=== PATIENT | female | born 1990 | race Caucasian/White ===

== ENCOUNTER → 2016-02-29 | Outpatient (REF) | payer OTHER ==
[~2016-02-29] MED LIST: /MESA40TAB PO; ACET50TA PO; ACIDCAP PO; CALCCHW PO; CELE20TA OR; DOCU10ELUD PO; DRIS50002 PO; IBUP600T26 PO; INFL10VL IV; LIAL1.2T PO; MAG-TAB2 PO; MOM30SS; ORTHTAB5 PO; OYST500T OR; PRE-TAB3 PO; VITA200015 PO; VITA200016 PO; acidophilus PO; asacol PO; remicade IV
== END ==
LOC: M SFHCLERA 10:36
PROVIDERS: ATTEND Nurse Practitioner Family
DX: J02.9 Acute pharyngitis, unspecified (principal)

== ENCOUNTER 2016-03-17 14:06 | Outpatient (CLI) | payer MEDICAID, OTHER ==
[~2016-03-17] VITALS: Ht 162.6 cm; Wt 105.0 kg
[2016-03-17] MEDS ORDERED: OMEP40CA2 PO (14:34)
[2016-03-17] MEDS ORDERED: ACIDWAF PO (14:34)
[2016-03-17] MEDS ORDERED: CHEW500C2 PO (14:34)
[2016-03-17] MEDS ORDERED: [UNRECOGNIZED DRUG - CODE] SC (14:34)
[2016-03-17] MEDS ORDERED: MAGN500T5 PO (14:34)
[2016-03-17] MEDS ORDERED: URSO300C3 PO (14:39)
== END 2016-03-17 17:33 | disposition home or self-care (01) ==
LOC: M LDO 14:06
PROVIDERS: ATTEND Obstetrics & Gynecology
DX: O36.8130 Decreased fetal movements, third trimester, not applicable or unspecified (principal); Z3A.36 36 weeks gestation of pregnancy

== ENCOUNTER → 2016-10-25 | Outpatient (CLI) | payer OTHER ==
[~2016-10-25] MED LIST changes: +ACIDWAF PO; +CHEW500C2 PO; +MAGN500T5 PO; +OMEP40CA2 PO; +ORTHTAB14 PO; -ORTHTAB5 PO; +URSO300C3 PO; +[UNRECOGNIZED DRUG - CODE] SC
[2016-10-25 14:43] LABS: BASO % 0.3 % (0.0-1.0); EOS % 0.1 % (0.0-3.0); LARGE UNSTAINED CELL # 0.1 K/mm3 (0.0-0.4); LARGE UNSTAINED CELL % 0.6 % (0.0-4.0); LYMPH # 0.9 K/mm3 (1.5-6.5); LYMPH % 7.8 % (24.0-44.0); MEAN CORPUSCULAR HEMOGLOBIN 23.6 pg (27.0-33.0); MEAN CORPUSCULAR HGB CONC 30.6 g/dl (32.0-36.5); MEAN CORPUSCULAR VOLUME 77.2 fl (80.0-96.0); MONO # 0.2 K/mm3 (0.0-0.8); MONO % 1.6 % (0.0-5.0); NEUTROPHILS # 10.7 K/mm3 (1.8-7.7); NEUTROPHILS % 89.6 % (36.0-66.0); PLATELET COUNT, AUTOMATED 424 k/mm3 (150-450); RED CELL DISTRIBUTION WIDTH 16.1 % (11.5-14.5)
[2016-10-25 15:25] LABS: ALBUMIN 3.6 GM/DL (3.2-5.2); ALBUMIN/GLOBULIN RATIO 0.95 (1.00-1.93); ALKALINE PHOSPHATASE 71 U/L (45-117); ALT/SGPT 24 U/L (12-78); ANION GAP 10 MEQ/L (8-16); AST/SGOT 7 U/L (15-37); BILIRUBIN,TOTAL 0.3 MG/DL (0.2-1.0); BLOOD UREA NITROGEN 11 MG/DL (7-18); CARBON DIOXIDE LEVEL 26 MEQ/L (21-32); CHLORIDE LEVEL 105 MEQ/L (98-107); CREATININE FOR GFR 0.86 MG/DL (0.55-1.02); GLOMERULAR FILTRATION RATE > 60.0 (>60); GLUCOSE, FASTING 98 MG/DL (70-105); POTASSIUM SERUM 3.9 MEQ/L (3.5-5.1); SODIUM LEVEL 141 MEQ/L (136-145); TOTAL PROTEIN 7.4 GM/DL (6.4-8.2)
== END ==
LOC: M LAB 13:38
PROVIDERS: ATTEND Internal Medicine Gastroenterology
DX: K51.90 Ulcerative colitis, unspecified, without complications (principal)

== ENCOUNTER → 2016-11-20 | Outpatient (CLI) | payer OTHER ==
[2016-11-20 10:43] LABS: MEAN CORPUSCULAR HEMOGLOBIN 23.3 pg (27.0-33.0); MEAN CORPUSCULAR HGB CONC 29.7 g/dl (32.0-36.5); MEAN CORPUSCULAR VOLUME 78.5 fl (80.0-96.0); RED CELL DISTRIBUTION WIDTH 17.1 % (11.5-14.5); WHITE BLOOD COUNT 11.3 10^3/uL (4.0-10.0)
[2016-11-20 11:17] LABS: ALBUMIN 3.7 GM/DL (3.2-5.2); ANION GAP 8 MEQ/L (8-16); BLOOD UREA NITROGEN 10 MG/DL (7-18); CALCIUM LEVEL 8.2 MG/DL (8.5-10.1); CARBON DIOXIDE LEVEL 30 MEQ/L (21-32); CHLORIDE LEVEL 104 MEQ/L (98-107); CHOLESTEROL LEVEL 173 MG/DL (<200); CREATININE FOR GFR 0.77 MG/DL (0.55-1.02); FERRITIN 9 NG/ML (8-252); GLOMERULAR FILTRATION RATE > 60.0 (>60); GLUCOSE, FASTING 76 MG/DL (70-105); PHOSPHORUS LEVEL 3.6 MG/DL (2.5-4.9); POTASSIUM SERUM 3.6 MEQ/L (3.5-5.1); SODIUM LEVEL 142 MEQ/L (136-145); TOTAL IRON BINDING CAPACITY 329 UG/DL (250-450); TRIGLYCERIDES LEVEL 103 MG/DL (<150)
--- NOTE | 2016-11-20 11:18 | REP ---
REASON: Back pain times 5 years. COMPARISON: None. FINDINGS: Five views of the lumbosacral spine show no acute fracture, dislocation or subluxation. The intervertebral disc spaces are symmetric and well maintained. There is no spondylolisthesis. The pedicles are intact bilaterally and there is no destructive osseous lesions. IMPRESSION: Unremarkable lumbosacral spine series. Signed by Yung Rausch DO 11/20/2016 02:59 P
[2016-11-22 10:16] LABS: FOLATE 13.2 NG/ML; VITAMIN B12 LEVEL 402 PG/ML
== END ==
LOC: M LAB 09:57
PROVIDERS: ATTEND Student in an Organized Health Care Education/Training Program
DX: G89.29 Other chronic pain (principal)

== ENCOUNTER → 2016-12-27 | Outpatient (REF) | payer OTHER ==
[2016-12-27 19:30] LABS: CONTROL LINE HCG INT CTR LINE PRESENT
[2016-12-27 19:56] LABS: FERRITIN 9 NG/ML (8-252); PERCENT SATURATION 8.3 % (13.2-45.0); TOTAL IRON BINDING CAPACITY 301 UG/DL (250-450)
== END ==
LOC: M LAB REF 17:23
PROVIDERS: ATTEND Internal Medicine Medical Oncology
DX: D50.9 Iron deficiency anemia, unspecified (principal)

== ENCOUNTER → 2017-01-03 | Outpatient (REF) | payer OTHER ==
[2017-01-04 08:02] LABS: CONTROL LINE HCG INT CTR LINE PRESENT
== END ==
LOC: M LAB REF 17:36
PROVIDERS: ATTEND Internal Medicine Medical Oncology
DX: D50.9 Iron deficiency anemia, unspecified (principal)

== ENCOUNTER 2017-01-17 21:31 | Inpatient (IN) | payer OTHER ==
[~2017-01-17] VITALS: Ht 162.6 cm; Wt 112.9 kg
[~2017-01-17 21:31] MED LIST changes: -AZAT50TA2 PO; -GABA-282 PO; -TOPA50TA8 PO
[2017-01-17] MEDS ORDERED: AZAT50TA2 PO (22:02)
[2017-01-17] MEDS ORDERED: GABA-282 PO (22:04)
[2017-01-17] MEDS ORDERED: TOPA50TA8 PO (22:04)
[2017-01-18 00:47] LABS: BASO % 0.4 % (0.0-1.0); EOS # 0.1 10^3/uL (0.0-0.50); EOS % 0.6 % (0.0-3.0); IMMATURE GRANULOCYTE % 0.2 % (0-0); LYMPH # 2.1 10^3/uL (1.5-6.5); LYMPH % 25.1 % (24.0-44.0); MEAN CORPUSCULAR HEMOGLOBIN 25.2 pg (27.0-33.0); MEAN CORPUSCULAR HGB CONC 31.2 g/dl (32.0-36.5); MEAN CORPUSCULAR VOLUME 80.9 fl (80.0-96.0); MONO # 0.6 10^3/uL (0.0-0.8); MONO % 7.1 % (0.0-5.0); NEUTROPHILS # 5.4 10^3/uL (1.8-7.7); NEUTROPHILS % 66.6 % (36.0-66.0); PLATELET COUNT, AUTOMATED 367 10^3/uL (150-450); RED CELL DISTRIBUTION WIDTH 16.8 % (11.5-14.5); WHITE BLOOD COUNT 8.2 10^3/uL (4.0-10.0)
[2017-01-18 00:57] LABS: CONTROL LINE UCG INT CTR LINE PRESENT
[2017-01-18] MEDS ORDERED: ISOVUE-370 76% 100ML VIAL (Q9967) As Ordered ONE (01:04)
[2017-01-18 01:09] LABS: ANION GAP 9 MEQ/L (8-16); BLOOD UREA NITROGEN 9 MG/DL (7-18); CALCIUM LEVEL 8.7 MG/DL (8.5-10.1); CARBON DIOXIDE LEVEL 24 MEQ/L (21-32); CHLORIDE LEVEL 107 MEQ/L (98-107); CREATININE FOR GFR 0.82 MG/DL (0.55-1.02); GLOMERULAR FILTRATION RATE > 60.0 (>60); GLUCOSE, FASTING 104 MG/DL (70-105); POTASSIUM SERUM 3.4 MEQ/L (3.5-5.1); SODIUM LEVEL 140 MEQ/L (136-145)
[2017-01-18 01:10] LABS: ALBUMIN 3.7 GM/DL (3.2-5.2); ALBUMIN/GLOBULIN RATIO 0.93 (1.00-1.93); ALKALINE PHOSPHATASE 65 U/L (45-117); ALT/SGPT 25 U/L (12-78); AMYLASE 159 U/L (25-115); AST/SGOT 10 U/L (7-37); BILIRUBIN,TOTAL 0.3 MG/DL (0.2-1.0); TOTAL PROTEIN 7.7 GM/DL (6.4-8.2)
--- NOTE | 2017-01-18 02:10 | REPUSA ---
CLINICAL HISTORY: RUQ pain. TECHNIQUE: Realtime sonographic images were obtained in multiple projections. COMMENTS: The visualized liver is of uniform echo texture without evidence of mass or defect. There is no intra or extrahepatic biliary ductal dilatation. The common bile duct measures 3.9 mm. The gallbladder is physiologically distended with evidence of gravel. The gallbladder wall is not thickened and there i s no pericholecystic fluid. The visualized portions of the pancreas are unremarkable. Unremarkable right kidney measuring 12x5.6x4.1 cm. IMPRESSION: Gravel in the gallbladder. Thank you for your kind referral of this patient.
--- NOTE | 2017-01-18 02:50 | REPUSA ---
CLINICAL HISTORY: Abdominal pain. TECHNIQUE: Multiple axial, sagittal and coronal CT images were obtained through the abdomen and pelvi s after administration of oral and intravenous contrast material. COMMENTS: Comparison to prior exam performed on 10/31/2007. There is gallstone which was not present on prior exam. There is mild peripancreatic inflammatory fat stranding which was not present on prior exam. There is mild diffuse apparent thickening of the colon. The liver is of uniform attenuation without mass or defect. There is no intra or extrahepatic biliary ductal dilatation. The spleen is normal. There is no evidence of adrenal mass. Both kidneys demonstrate prompt and equal nephrograms. The kidneys are normal in size, shape and conf iguration. There is no evidence of renal or ureteral mass. No renal or ureteral calculi are identifie d. There is no hydroureter or hydronephrosis. No evidence for appendicitis. No evidence for small or large bowel obstruction. There is no evidence of abdominal ascites or lympha denopathy. There is no evidence of intrinsic or extrinsic bladder mass. There is no pelvic ascites or lymphadeno josep. Images of the lung bases show no evidence of pleural or parenchymal mass. There are no pleural effusi ons. The bony structures are free of lytic or blastic lesions. IMPRESSION: Comparison to prior exam performed on 10/31/2007. Gallstone which was not present on prior exam. Mild peripancreatic inflammatory fat stranding which was not present on prior exam. Mild diffuse apparent thickening of the colon. Underdistention, spastic versus mild colitis. Thank you for your kind referral of this patient.
[2017-01-18] MEDS ORDERED: NS 1,000 ML IV ONE ×2 (03:30)
[2017-01-18] MEDS ORDERED: MORPHINE 2 MG/ML 1ML SYRINGE IV PRN (04:45)
[2017-01-18] MEDS ORDERED: POTASSIUM CHLORIDE 10 MEQ SR TABLET PO ONE (04:45)
[2017-01-18] MEDS ORDERED: OMEPRAZOLE 20 MG CAP PO PRN (05:30)
--- NOTE | 2017-01-18 05:34 | HPEPDOC ---
General Date of Admission Jan 18, 2017 at 04:39 Primary Care Physician: LAURA GRAHAM DO Chief Complaint The patient is a 26-year-old female admitted with a reason for visit of Acute Pancreatitis. Source: Patient Exam Limitations: No limitations Timing/Duration: Week(s) (one week) Severity: Moderate Associated Symptoms: Cough, Fever, Chills, Shortness of breath, Other ( abdominal pain) History of Present Illness Ms. Ponce is a pleasant 26-year-old female with past medical history of ulcerative colitis and migraines who presents to the emergency department after a one-week history of acute onset right-sided abdominal pain, sharp in nature and worsened with food intake associated with chills and a decreased appetite w / nausea. The patient states that she had an infusion of iron at the end of December 2016 after she was found to be iron deficient by her primary care doctor, the onset of sharp and severe right-sided abdominal pain after food intake began about one week later, she had first thought this was associated with the infusion. Around this time she was also started on Topamax for her headaches. The patient denies any fevers but does admit to chills, denies vomiting but admits to nausea, denies loose stool, blood in stool or blood in urine. She does not drink nor does she have a history of alcohol use or abuse. She states that any sort of food will cause the abdominal pain and that even water can give her pain. The pain in her right side of the abdomen would occur minutes after eating and sometimes last up to 7 hours, it is now radiating to the left side of her abdomen. She does not have a history of gallstones or pancreatitis. She recently had a child in March 2016 which was a , it was thought that the and her ulcerative colitis may have made her iron deficient according to the patient. She states that she does not have excessively heavy menstrual cycles. She does tell me that for the past few days she has had a nonproductive cough and has attributed this to a cold, denies shortness of breath or chest pain, denies fever. Home Medications Scheduled (Simponi) 100 Mg/Ml Inj, 100 MG SC ASDIRECTED, (Reported) TAKES EVERY 4 WEEKS Azathioprine (Azathioprine) 50 Mg Tab, 100 MG PO DAILY, (Reported) Gabapentin (Gabapentin) 300 Mg Cap, 300 MG PO BID, (Reported) Topiramate (Topamax) 50 Mg Tab, 50 MG PO BID, (Reported) Scheduled PRN Omeprazole (Omeprazole) 40 Mg Cap, 40 MG PO DAILY PRN for ACID REFLUX, (Reported ) Allergies Coded Allergies: Infliximab (Verified Allergy, Severe, TIGHTNESS IN CHEAT,NECK, THROAT AREA ,SKIN FLUSHED, 04/12/14) Sulfa Drugs (Unverified Allergy, Intermediate, HIVES, 05/24/12) Sulfamethoxazole (Unverified Allergy, Intermediate, HIVES, 05/24/12) Trimethoprim (Unverified Allergy, Intermediate, HIVES, 05/24/12) Latex (Verified Allergy, Unknown, 01/08/13) Quinolones (Unverified Allergy, Unknown, UNKNOWN, 05/23/12) Suprofen (Unverified Allergy, Unknown, UNKNOWN, 05/23/12) Penicillins (Unverified Adverse Reaction, Intermediate, UPSET STOMACH, VOMITING, 01/18/17) Past Medical History [facility] Surgical History Mar 2016 colonoscopies b/l carpal tunnel sx Family History Paternal uncle has ulcerative colitis Mother has diabetes and hyperlipidemia and hypertension Father has hyperlipidemia, hypertension and history of DVT Social History * Smoker: Denies Alcohol: Denies Drugs: denies Recent Travel/Sick Contacts: Denies: Recent travel The patient is a [id number] mom, lives at home with her and 2 children. She used to work at [employer]. Review of Symptoms Constitutional: Reports: Chills, Malaise, Denies: Fever, Night Sweats, Weakness Eyes: Denies: Pain, Vision change ENT: Reports: Head Aches Skin: Denies: Rash, Lesions Pulmonary: Reports: Cough, Denies: Dyspnea Cardiovascular: Denies: Chest Pain, Palpitations, Orthopnea, Edema, Lt Headedness Gastrointestinal: Reports: Nausea, Abdominal Pain (right sided), Denies: Vomiting, Diarrhea, Constipation, Melena, Hematochezia Genitourinary: Denies: Dysuria Neurological: Denies: Weakness Psych: Reports: Mood Normal Physical Examination General Exam: Positive: Alert, Cooperative, Mild Distress Eye Exam: Positive: Conjunctiva & lids normal, EOMI ENT Exam: Positive: Atraumatic, Mucous membr. moist/pink, Pharynx Normal, Tongue Midline Chest Exam: Positive: Clear to auscultation, Normal air movement, Negative: Rales, Rhonchi, Wheezing, Diminished Heart Exam: Positive: Tachycardic, Regular Rhythm, Normal S1, Normal S2, Negative: Murmurs, Rubs Telemetry: Positive: No significant arrhythmia Abdomen Exam: Positive: Normal bowel sounds, Soft, Tenderness (right upper and lower quadrant tender to palpation), Other (obese, normal acute bowel sounds 4 , no rebound guarding, no distention), Negative: Hepatospenomegaly, Mass Extremity Exam: Positive: Normal pulses, Negative: Clubbing, Cyanosis, Edema, Tenderness, Swelling Skin Exam: Negative: Breakdown Psych Exam: Positive: Mental status NL Vital Signs Vital Signs Date Time Temp Pulse Resp B/P (MAP) Pulse Ox O2 Delivery O2 Flow Rate FiO2 01/18/17 02:33 99.6 100 16 104/61 (75) 99 Room Air Laboratory Data Labs 24H Laboratory Tests 2 01/18/17 00:18: Immature Granulocyte % (Auto) 0.2H, White Blood Count 8.2, Red Blood Count 4.40 , Hemoglobin 11.1L, Hematocrit 35.6L, Mean Corpuscular Volume 80.9, Mean Corpuscular Hemoglobin 25.2L, Mean Corpuscular Hemoglobin Concent 31.2L, Red Cell Distribution Width 16.8H, Platelet Count 367, Neutrophils (%) (Auto) 66.6H , Lymphocytes (%) (Auto) 25.1, Monocytes (%) (Auto) 7.1H, Eosinophils (%) (Auto ) 0.6, Basophils (%) (Auto) 0.4, Neutrophils # (Auto) 5.4, Lymphocytes # (Auto) 2.1, Monocytes # (Auto) 0.6, Eosinophils # (Auto) 0.1, Basophils # (Auto) 0.0, Immature Granulocyte # (Auto) 0.0, Nucleated Red Blood Cells % (auto) 0.0, Anion Gap 9, Glomerular Filtration Rate > 60.0, Blood Urea Nitrogen 9, Creatinine 0.82, Sodium Level 140, Potassium Level 3.4L, Chloride Level 107, Carbon Dioxide Level 24, Calcium Level 8.7, Aspartate Amino Transf (AST/SGOT) 10 , Alanine Aminotransferase (ALT/SGPT) 25, Alkaline Phosphatase 65, Total Bilirubin 0.3, Total Protein 7.7, Albumin 3.7, C-Reactive Protein, Quantitative 5.05H, Albumin/Globulin Ratio 0.93L, Amylase Level 159H, Lipase 2853H 01/18/17 00:20: Urine Appearance HAZY, Urine Color YELLOW, Urine pH 5.0, Urine Specific [place] 1.025, Urine Protein NEGATIVE, Urine Glucose (UA) NEGATIVE, Urine Ketones NEGATIVE, Urine Urobilinogen 0.2, Urine Bilirubin NEGATIVE, Urine Leukocyte Esterase NEGATIVE, Urine Blood NEGATIVE, Urine Nitrite NEGATIVE, Urine WBC (Auto ) 0, Urine RBC (Auto) 0, Urine Hyaline Casts (Auto) 0, Urine Bacteria (Auto) NEGATIVE, Urine Squamous Epithelial Cells 1, Urine Mucus (Auto) SMALL, Urine Sperm (Auto) , Urine Test NEGATIVE CBC/BMP Laboratory Tests 01/18/17 00:18 Red Blood Count 4.40, Mean Corpuscular Volume 80.9, Mean Corpuscular Hemoglobin 25.2 L, Mean Corpuscular Hemoglobin Concent 31.2 L, Red Cell Distribution Width 16.8 H, Neutrophils (%) (Auto) 66.6 H, Lymphocytes (%) (Auto) 25.1, Monocytes (% ) (Auto) 7.1 H, Eosinophils (%) (Auto) 0.6, Basophils (%) (Auto) 0.4, Neutrophils # (Auto) 5.4, Lymphocytes # (Auto) 2.1, Monocytes # (Auto) 0.6, Eosinophils # (Auto) 0.1, Basophils # (Auto) 0.0, Calcium Level 8.7, Aspartate Amino Transf (AST/SGOT) 10, Alanine Aminotransferase (ALT/SGPT) 25, Alkaline Phosphatase 65, Total Bilirubin 0.3, Total Protein 7.7, Albumin 3.7 Assessment/Plan This is a 26-year-old female who presents to the emergency department after a one-week history of acute onset of right-sided abdominal pain associated with food intake. 1. Abdominal pain Secondary to acute gallstone pancreatitis Amylase and lipase elevated in emergency department CT abdomen and ultrasound suggestive of gallstones, common bile duct not dilatated The patient's current medications have a very low risk of causing pancreatitis Liver enzymes & bilirubin within normal limits Patient most likely has cleared the gallstone Pain management with morphine as needed IV fluids normal saline at 250 Patient made nothing by mouth Triglycerides pending LDH pending Would consider surgical consult inpatient versus outpatient once acute episode resolves for discussion of cholecystectomy 2. Hypokalemia 3.4 on presentation Has supplemented 3. Ulcerative colitis continue with home medications 4. History of migraines Continue with home medication 5. DVT prophylaxis Lovenox SCD teds Plan / VTE VTE Prophylaxis Ordered?: Yes GME ATTESTATION GME ATTESTATION My faculty preceptor for this patient encounter was physically present during the encounter and was fully available. All aspects of the patient interview, examination, medical decision making process, and medical care plan development were reviewed and approved by the faculty preceptor. The faculty preceptor is aware and concurs with the plan as stated in the body of this note and will attest to such by his/her cosignature. RENEE HUMPHREYS DO Jan 18, 2017 05:34
[2017-01-18 06:10] VITALS: BP 137/80
[2017-01-18 07:19] LABS: TRIGLYCERIDES LEVEL 48 MG/DL (<150)
[2017-01-18 08:00] VITALS: BP 123/57
[2017-01-18] MEDS: NS 1,000 ML IV SCH ×4 (09:47→20:20)
[2017-01-18] MEDS: azaTHIOprine 50 MG TAB (J7500) PO SCH (09:47)
[2017-01-18] MEDS: TOPIRAMATE (TopAMAX) 25 MG TAB PO SCH ×2 (09:48→20:20)
[2017-01-18] MEDS: GABAPENTIN 300 MG CAP PO SCH ×2 (09:48→20:20)
[2017-01-18] MEDS: ENOXAPARIN 40 MG/0.4 ML SYRINGE (J1650) SC SCH (10:13)
[2017-01-18 16:00] VITALS: BP 141/85
[2017-01-18 20:00] VITALS: BP 125/73
[2017-01-19] VITALS: BP 123/74
[2017-01-19] MEDS ORDERED: EXCEDRIN MIGRAINE TABLET PO ONE (00:15)
[2017-01-19] MEDS: NS 1,000 ML IV SCH ×2 (00:35→00:59)
[2017-01-19 07:24] LABS: BASO % 0.5 % (0.0-1.0); EOS # 0.1 10^3/uL (0.0-0.50); EOS % 0.8 % (0.0-3.0); IMMATURE GRANULOCYTE % 0.2 % (0-0); LYMPH # 1.7 10^3/uL (1.5-6.5); LYMPH % 28.3 % (24.0-44.0); MEAN CORPUSCULAR HEMOGLOBIN 25.3 pg (27.0-33.0); MEAN CORPUSCULAR VOLUME 81.8 fl (80.0-96.0); MONO # 0.6 10^3/uL (0.0-0.8); MONO % 10.4 % (0.0-5.0); NEUTROPHILS # 3.7 10^3/uL (1.8-7.7); NEUTROPHILS % 59.8 % (36.0-66.0); PLATELET COUNT, AUTOMATED 275 10^3/uL (150-450); RED CELL DISTRIBUTION WIDTH 16.5 % (11.5-14.5); WHITE BLOOD COUNT 6.2 10^3/uL (4.0-10.0)
[2017-01-19 07:30] LABS: ALBUMIN 2.9 GM/DL (3.2-5.2); ALBUMIN/GLOBULIN RATIO 0.76 (1.00-1.93); ALKALINE PHOSPHATASE 50 U/L (45-117); ALT/SGPT 18 U/L (12-78); ANION GAP 11 MEQ/L (8-16); AST/SGOT 11 U/L (7-37); BILIRUBIN,TOTAL 0.3 MG/DL (0.2-1.0); BLOOD UREA NITROGEN 3 MG/DL (7-18); CALCIUM LEVEL 8.2 MG/DL (8.5-10.1); CARBON DIOXIDE LEVEL 18 MEQ/L (21-32); CHLORIDE LEVEL 114 MEQ/L (98-107); CREATININE FOR GFR 0.55 MG/DL (0.55-1.02); GLOMERULAR FILTRATION RATE > 60.0 (>60); GLUCOSE, FASTING 69 MG/DL (70-105); POTASSIUM SERUM 3.7 MEQ/L (3.5-5.1); SODIUM LEVEL 143 MEQ/L (136-145); TOTAL PROTEIN 6.7 GM/DL (6.4-8.2)
[2017-01-19 08:00] VITALS: BP 118/63
[2017-01-19] MEDS ORDERED: DOCUSATE SODIUM 100 MG CAP PO PRN (08:15)
[2017-01-19] MEDS ORDERED: MIRALAX *UNIT DOSE* 17GM PACKET PO PRN (08:15)
[2017-01-19] MEDS: ENOXAPARIN 40 MG/0.4 ML SYRINGE (J1650) SC SCH (09:00)
[2017-01-19] MEDS: GABAPENTIN 300 MG CAP PO SCH ×2 (09:09→20:02)
[2017-01-19] MEDS: TOPIRAMATE (TopAMAX) 25 MG TAB PO SCH ×2 (09:09→20:02)
[2017-01-19] MEDS: azaTHIOprine 50 MG TAB (J7500) PO SCH (09:10)
--- NOTE | 2017-01-19 12:45 | IPNPDOC ---
Text Note Date of Service The patient was seen on 01/19/17. NOTE Subjective: Patient is a 26 year old female with a PMHx of UC, Iron deficiency anemia, and Migraine headaches who presented to the Er with abdominal pain associated with nausea and vomiting. Patient was found to have an elevated lipase and imaging consistent with acute pancreatitis. Hospitalist team was called for admission. Patient was seen and examined at the bedside. Patient denies any abdominal pain , nausea, vomiting or diarrhea. She notes that she does have an appetite and is willing to try food today. Objective: Vitals (See below) General: Lying in bed, no acute distress, comfortable, AAOx3 HEENT: NC, AT CVS: RRR, +S1S2 Lungs: Fair air entry b/l, -w/r/r Abdomen: Soft, ND, NT Extremities: - Edema, - Calf tenderness Assessment and plan: Abdominal pain - likely 2/2 acute pancreatitis - likely 2/2 passed gallstone - Clinically reports improvement in her symptoms - Physical without any abdominal tenderness - Lipase trending down - CT abdomen / Pelvis 01/17: Gallstone, Mild peripancreatic inflammatory fat stranding, Mild diffuse apparent thickening of the colon (underdistention, spastic, colitis) - US abdomen 01/18: Gravel in the gallbladder - Will advance diet to liquid clears - Will stop aggressive IV fluid hydration and narcotic pain control - Discussed with Surgery (Dr. Hu); will have the patient follow up as an outpatient for scheduled cholecystectomy s/p Hypokalemia Metabolic acidosis - likely 2/2 IV fluids - Will stop aggressive hydration Ulcerative colitis - c/w Azathioprine Migraine headaches - c/w Gabapentin and Topamax GERD - c/w Omeprazole DVT prophylaxis - c/w Lovenox VS,Fishbone, I+O VS, Fishbone, I+O Laboratory Tests 01/19/17 06:48 Red Blood Count 4.11, Mean Corpuscular Volume 81.8, Mean Corpuscular Hemoglobin 25.3 L, Mean Corpuscular Hemoglobin Concent 31.0 L, Red Cell Distribution Width 16.5 H, Neutrophils (%) (Auto) 59.8, Lymphocytes (%) (Auto) 28.3, Monocytes (%) (Auto) 10.4 H, Eosinophils (%) (Auto) 0.8, Basophils (%) (Auto) 0.5, Neutrophils # (Auto) 3.7, Lymphocytes # (Auto) 1.7, Monocytes # (Auto) 0.6, Eosinophils # (Auto) 0.1, Basophils # (Auto) 0.0, Calcium Level 8.2 L, Aspartate Amino Transf (AST/SGOT) 11, Alanine Aminotransferase (ALT/SGPT) 18, Alkaline Phosphatase 50, Total Bilirubin 0.3, Total Protein 6.7, Albumin 2.9 #L Vital Signs Date Time Temp Pulse Resp B/P (MAP) Pulse Ox O2 Delivery O2 Flow Rate FiO2 01/19/17 08:00 98.1 81 20 118/63 (81) 98 Room Air I&O- Last 24 Hours up to 6 AM 01/20/17 06:00 Intake Total 360 ml Output Total 300 ml Balance 60 ml ENRIQUE TREJO MD Jan 19, 2017 12:44
[2017-01-19 16:00] VITALS: BP 129/77
[2017-01-19] MEDS ORDERED: LOPERAMIDE 2 MG CAP PO PRN (17:00)
--- NOTE | 2017-01-19 19:09 | REP ---
AP Portable chest: 01/19/2017. Comparison: CT abdomen 01/18/2017, chest x-ray 09/17/2008. Lungs are only marginally adequate in the degree of inflation, but without infiltrate, effusion, atelectasis or mass. Heart, mediastinal and hilar contours normal. Aorta and airway intact. Bones intact. No free air under the diaphragm. Impression: 1. Negative portable chest. Signed by Hong Cheney MD 01/19/2017 08:03 P
[2017-01-19 20:00] VITALS: BP 135/73
[2017-01-19] MEDS: ACETAMINOPHEN TAB 650MG DOSE (2X325MG) PO PRN (20:02)
[2017-01-20] VITALS: BP 139/71
[2017-01-20 07:50] LABS: BASO % 0.5 % (0.0-1.0); EOS % 0.7 % (0.0-3.0); IMMATURE GRANULOCYTE % 0.3 % (0-0); LYMPH # 1.4 10^3/uL (1.5-6.5); LYMPH % 23.7 % (24.0-44.0); MEAN CORPUSCULAR HEMOGLOBIN 24.8 pg (27.0-33.0); MEAN CORPUSCULAR HGB CONC 31.3 g/dl (32.0-36.5); MEAN CORPUSCULAR VOLUME 79.2 fl (80.0-96.0); MONO # 0.5 10^3/uL (0.0-0.8); MONO % 7.6 % (0.0-5.0); NEUTROPHILS % 67.2 % (36.0-66.0); PLATELET COUNT, AUTOMATED 372 10^3/uL (150-450); RED CELL DISTRIBUTION WIDTH 16.8 % (11.5-14.5); WHITE BLOOD COUNT 5.9 10^3/uL (4.0-10.0)
[2017-01-20 08:00] VITALS: BP 119/60
[2017-01-20 08:22] LABS: ALBUMIN 3.3 GM/DL (3.2-5.2); ALBUMIN/GLOBULIN RATIO 0.92 (1.00-1.93); ALKALINE PHOSPHATASE 55 U/L (45-117); ALT/SGPT 20 U/L (12-78); ANION GAP 9 MEQ/L (8-16); AST/SGOT 9 U/L (7-37); BILIRUBIN,TOTAL 0.2 MG/DL (0.2-1.0); BLOOD UREA NITROGEN 4 MG/DL (7-18); CALCIUM LEVEL 8.6 MG/DL (8.5-10.1); CARBON DIOXIDE LEVEL 20 MEQ/L (21-32); CHLORIDE LEVEL 115 MEQ/L (98-107); CREATININE FOR GFR 0.65 MG/DL (0.55-1.02); GLOMERULAR FILTRATION RATE > 60.0 (>60); GLUCOSE, FASTING 94 MG/DL (70-105); POTASSIUM SERUM 3.8 MEQ/L (3.5-5.1); SODIUM LEVEL 144 MEQ/L (136-145); TOTAL PROTEIN 6.9 GM/DL (6.4-8.2)
[2017-01-20] MEDS: TOPIRAMATE (TopAMAX) 25 MG TAB PO SCH (08:53)
[2017-01-20] MEDS: azaTHIOprine 50 MG TAB (J7500) PO SCH (08:54)
[2017-01-20] MEDS: GABAPENTIN 300 MG CAP PO SCH (08:54)
[2017-01-20] MEDS: ACETAMINOPHEN TAB 650MG DOSE (2X325MG) PO PRN (08:55)
[2017-01-20] MEDS: ENOXAPARIN 40 MG/0.4 ML SYRINGE (J1650) SC SCH (09:00)
--- NOTE | 2017-01-20 09:50 | REP ---
Paranasal sinus series four views: No air-fluid levels or mucosal thickening are identified in the paranasal sinuses. The skull base and sella are unremarkable. There is no adenoid hypertrophy. The prevertebral soft tissues are normal. The nasal septum appears mildly deviated to the left. Impression: Essentially negative paranasal sinus series plain film study. Consider maxillofacial CT if symptoms persist or worsen. Half half half half of half of the Signed by Massimo Hernandes MD 01/20/2017 09:41 A
--- NOTE | 2017-01-20 15:03 | DSES ---
DATE OF ADMISSION: 01/18/2017 DATE OF DISCHARGE: 01/20/2017 ATTENDING PHYSICIAN: Rickey Beebe MD DICTATED BY: Rickey Beebe MD PRIMARY CARE PHYSICIAN: Cyrus Clay DO REFERRING PHYSICIAN: None. CONSULTING PHYSICIANS: None. CONDITION ON DISCHARGE: Stable. FINAL DIAGNOSIS: Acute pancreatitis. PROCEDURES: None. HISTORY OF PRESENT ILLNESS: Patient is a 26-year-old female with a past medical history of ulcerative colitis, iron deficiency anemia and migraines headaches who presented to the emergency room with complaints of abdominal pain associated with nausea and vomiting. Patient was found to have an elevated lipase and imaging consistent with acute pancreatitis. The hospitalist team was called for admission. HOSPITAL COURSE: 1. Abdominal pain likely secondary to acute pancreatitis secondary to past gallstone. She clinically reports improvement in her symptoms. Physically is without any abdominal tenderness. Lipase has been trending down. CT abdomen and pelvis on 01/17 revealed a gallstone, mild peripancreatic inflammatory fat stranding. Mild diffuse apparently thickening of the colon, which is contributed to under distention, spastic versus colitis. Ultrasound of the abdomen on 01/18 revealed gravel in the gallbladder. The patient's diet was initially nothing by mouth and she has been advanced to liquids and a full regular diet a she has tolerated it. Patient was initially put on aggressive IV fluid hydration, however since her pain has resolved she has been stopped. Her pain control with morphine has been stopped as she is no longer in any abdominal pain. The case has been discussed with Dr. Hu and at this point the patient does not need a cholecystectomy at this point. Will have the patient followup as an outpatient with Dr. Hu. 2. Status post hypokalemia. 3. Metabolic acidosis secondary to IV fluid. IV fluid hydration has been stopped and metabolic acidosis has been improving. 4. Ulcerative colitis. Continue with azathioprine. 5. Migraines headaches. Continue with gabapentin and Topamax. 6. Gastroesophageal reflux disease (GERD). Continue with omeprazole. 7. Deep vein thrombosis (DVT) prophylaxis. Continue with Lovenox. DISCHARGE MEDICATIONS: Patient is being discharge home on the following medication list: - azathioprine 100 mg by mouth daily - gabapentin 300 mg by mouth twice a day - omeprazole 40 mg by mouth daily - Simponi 100 mg subcu as directed - topiramate 50 mg by mouth twice a day DISCHARGE INSTRUCTIONS: Patient has been advised to followup with her primary care provider, Dr. Cheryl Clay as well as Dr. Hu within the next seven days. She has been advised to remain compliant with treatment plan and medications. Return to the emergency room if she experiences any problems. TIME SPENT ON DISCHARGE: Greater than 35 minutes.
== END 2017-01-20 11:19 | disposition home or self-care (01) | DRG 282 ==
LOC: M ED 21:31 → M ED INP 01-18 04:39 → M PED 01-18 06:05
PROVIDERS: ADMIT Internal Medicine; ATTEND Internal Medicine
DX: K85.90 Acute pancreatitis without necrosis or infection, unspecified (principal); E87.2 Acidosis; K51.90 Ulcerative colitis, unspecified, without complications; E87.6 Hypokalemia; K21.9 Gastro-esophageal reflux disease without esophagitis; G43.909 Migraine, unspecified, not intractable, without status migrainosus; Z79.899 Other long term (current) drug therapy; Z88.2 Allergy status to sulfonamides; Z88.0 Allergy status to penicillin; Z88.8 Allergy status to other drugs, medicaments and biological substances; Z91.040 Latex allergy status

== ENCOUNTER → 2017-01-17 | Outpatient (CLI) | payer OTHER ==
[~2017-01-17] MED LIST changes: +AZAT50TA2 PO; +GABA-282 PO; +TOPA50TA8 PO
[2017-01-17 15:07] LABS: BASO % 0.5 % (0.0-1.0); EOS % 0.5 % (0.0-3.0); IMMATURE GRANULOCYTE % 0.4 % (0-0); LYMPH # 1.7 10^3/uL (1.5-6.5); LYMPH % 22.6 % (24.0-44.0); MEAN CORPUSCULAR HEMOGLOBIN 25.1 pg (27.0-33.0); MEAN CORPUSCULAR HGB CONC 30.8 g/dl (32.0-36.5); MEAN CORPUSCULAR VOLUME 81.4 fl (80.0-96.0); MONO # 0.8 10^3/uL (0.0-0.8); MONO % 10.2 % (0.0-5.0); NEUTROPHILS % 65.8 % (36.0-66.0); PLATELET COUNT, AUTOMATED 372 10^3/uL (150-450); RED CELL DISTRIBUTION WIDTH 16.8 % (11.5-14.5); WHITE BLOOD COUNT 7.6 10^3/uL (4.0-10.0)
[2017-01-17 15:23] LABS: CONTROL LINE HCG INT CTR LINE PRESENT
[2017-01-17 15:36] LABS: ALBUMIN 3.6 GM/DL (3.2-5.2); ALBUMIN/GLOBULIN RATIO 0.97 (1.00-1.93); ALKALINE PHOSPHATASE 63 U/L (45-117); ALT/SGPT 29 U/L (12-78); ANION GAP 7 MEQ/L (8-16); AST/SGOT 13 U/L (7-37); BILIRUBIN,TOTAL 0.2 MG/DL (0.2-1.0); BLOOD UREA NITROGEN 8 MG/DL (7-18); CALCIUM LEVEL 8.6 MG/DL (8.5-10.1); CARBON DIOXIDE LEVEL 25 MEQ/L (21-32); CHLORIDE LEVEL 110 MEQ/L (98-107); CREATININE FOR GFR 0.73 MG/DL (0.55-1.02); GLOMERULAR FILTRATION RATE > 60.0 (>60); GLUCOSE, FASTING 83 MG/DL (70-105); POTASSIUM SERUM 3.8 MEQ/L (3.5-5.1); SODIUM LEVEL 142 MEQ/L (136-145); TOTAL PROTEIN 7.3 GM/DL (6.4-8.2)
== END ==
LOC: M LAB 13:45
PROVIDERS: ATTEND Student in an Organized Health Care Education/Training Program
DX: R10.9 Unspecified abdominal pain (principal)

== ENCOUNTER → 2017-02-01 | Outpatient (REF) | payer OTHER ==
[~2017-02-01] MED LIST changes: +AZAT50TA2 PO; +GABA-282 PO; +TOPA50TA8 PO
[2017-02-01 15:56] LABS: BASO # 0.1 10^3/uL (0.0-0.2); EOS # 0.1 10^3/uL (0.0-0.50); EOS % 1.7 % (0.0-3.0); IMMATURE GRANULOCYTE % 0.3 % (0-0); LYMPH # 1.9 10^3/uL (1.5-6.5); LYMPH % 30.8 % (24.0-44.0); MEAN CORPUSCULAR HEMOGLOBIN 25.7 pg (27.0-33.0); MEAN CORPUSCULAR HGB CONC 31.3 g/dl (32.0-36.5); MEAN CORPUSCULAR VOLUME 82.1 fl (80.0-96.0); MONO # 0.7 10^3/uL (0.0-0.8); MONO % 11.1 % (0.0-5.0); NEUTROPHILS # 3.5 10^3/uL (1.8-7.7); NEUTROPHILS % 55.1 % (36.0-66.0); PLATELET COUNT, AUTOMATED 418 10^3/uL (150-450); WHITE BLOOD COUNT 6.3 10^3/uL (4.0-10.0)
[2017-02-01 16:38] LABS: ALBUMIN 3.9 GM/DL (3.2-5.2); ALBUMIN/GLOBULIN RATIO 0.98 (1.00-1.93); ALKALINE PHOSPHATASE 66 U/L (45-117); ALT/SGPT 25 U/L (12-78); ANION GAP 11 MEQ/L (8-16); AST/SGOT 20 U/L (7-37); BILIRUBIN,TOTAL 0.4 MG/DL (0.2-1.0); BLOOD UREA NITROGEN 5 MG/DL (7-18); CALCIUM LEVEL 9.3 MG/DL (8.5-10.1); CARBON DIOXIDE LEVEL 24 MEQ/L (21-32); CHLORIDE LEVEL 106 MEQ/L (98-107); CREATININE FOR GFR 0.74 MG/DL (0.55-1.02); GLOMERULAR FILTRATION RATE > 60.0 (>60); GLUCOSE, FASTING 79 MG/DL (70-105); POTASSIUM SERUM 3.8 MEQ/L (3.5-5.1); SODIUM LEVEL 141 MEQ/L (136-145); TOTAL PROTEIN 7.9 GM/DL (6.4-8.2)
== END ==
LOC: M SFHCPLAZ 14:07
PROVIDERS: ATTEND Family Medicine
DX: R35.0 Frequency of micturition (principal); N30.01 Acute cystitis with hematuria

== ENCOUNTER → 2017-02-01 | Outpatient (REF) | payer OTHER | LOC: M SFHCPLAZ 15:38 | PROVIDERS: ATTEND Student in an Organized Health Care Education/Training Program | DX: R35.0 Frequency of micturition (principal); N30.01 Acute cystitis with hematuria ==

== ENCOUNTER 2017-02-18 07:41 | Day surgery (SDC) | payer OTHER ==
[2017-02-18] MEDS: LR 1,000 ML IV (08:24)
[2017-02-18] MEDS: BUPIVACAINE HCL 0.25% 30 ML VIAL As Ordered ×2 (08:28→10:24)
[2017-02-18] MEDS: LIDOCAINE 1% SDV INJ 30 ML VIAL As Ordered ×2 (08:28→10:24)
[2017-02-18 08:38] LABS: CONTROL LINE UCG INT CTR LINE PRESENT; URINE PREG TEST NEGATIVE (NEGATIVE)
[2017-02-18] MEDS: CLINDAMYCIN 600 MG in APPROPRIATE DILUENT 1 EA IV (09:58)
[2017-02-18] MEDS ORDERED: LIDOCAINE 2% INJ 100 MG/5 ML SDV (FOR ANES.) As Ordered (10:05)
[2017-02-18] MEDS ORDERED: ROCURONIUM BROMIDE 50 MG/5 ML VIAL As Ordered (10:05)
[2017-02-18] MEDS ORDERED: MIDAZOLAM INJ 2 MG/2 ML VIAL (J2250) As Ordered (10:05)
[2017-02-18] MEDS ORDERED: dexameTHASONE 4 MG/ML 1ML VIAL (J1100) As Ordered ×2 (10:05)
[2017-02-18] MEDS ORDERED: fentaNYL 250 MCG/5 ML INJECTION (J3010) As Ordered (10:05)
[2017-02-18] MEDS ORDERED: PROPOFOL 200 MG/20 ML VIAL As Ordered (10:05)
[2017-02-18] MEDS ORDERED: NEOSTIGMINE 10 MG/10 ML VIAL (J2710) As Ordered (10:35)
[2017-02-18] MEDS ORDERED: KETOROLAC 60 MG/2 ML VIAL (J1885) As Ordered (10:35)
[2017-02-18] MEDS ORDERED: GLYCOPYRROLATE INJ 0.2 MG/ML 2 ML VIAL As Ordered (10:35)
[2017-02-18] MEDS ORDERED: ONDANSETRON 4MG/2ML VIAL (J2405) As Ordered (10:36)
[2017-02-18] MEDS ORDERED: ONDANSETRON 4MG/2ML VIAL (J2405) IV ×2 (11:45→12:00)
[2017-02-18] MEDS ORDERED: LR 1,000 ML IV (11:45)
[2017-02-18] MEDS ORDERED: HYDROmorphone HCL 1 MG/ML SYRINGE (J1170) IV (11:45)
[2017-02-18] MEDS ORDERED: fentaNYL 100 MCG/2 ML INJECTION (J3010) IV (11:45)
[2017-02-18] MEDS: PERCOCET 5MG/325MG TAB PO ×2 (11:58→12:45)
[2017-02-18] MEDS ORDERED: NORCO, ANEXSIA 5/325MG TABLET (HYDROcodone/ACETAMINOPHEN) PO ×2 (12:00)
[2017-02-18] MEDS ORDERED: PERCOCET 5MG/325MG TAB As Ordered (12:48)
[2017-02-18] MEDS ORDERED: KETOROLAC 30 MG/ML VIAL (J1885) IV (17:00)
== END 2017-02-18 15:36 | disposition home or self-care (01) ==
LOC: M SDC 07:41
DX: K80.12 Calculus of gallbladder with acute and chronic cholecystitis without obstruction (principal); D50.9 Iron deficiency anemia, unspecified; G43.909 Migraine, unspecified, not intractable, without status migrainosus; K21.9 Gastro-esophageal reflux disease without esophagitis; E66.9 Obesity, unspecified; K51.90 Ulcerative colitis, unspecified, without complications; Z79.899 Other long term (current) drug therapy; Z88.1 Allergy status to other antibiotic agents; Z91.040 Latex allergy status; Z88.0 Allergy status to penicillin; Z88.8 Allergy status to other drugs, medicaments and biological substances; Z88.2 Allergy status to sulfonamides
CPT/HCPCS: 47562

== ENCOUNTER → 2017-03-24 | Outpatient (REF) | payer OTHER ==
[2017-03-24 20:41] LABS: FERRITIN 71 NG/ML (8-252); IRON (FE) 37 UG/DL (50-170); PERCENT SATURATION 13.6 % (13.2-45.0); TOTAL IRON BINDING CAPACITY 273 UG/DL (250-450)
== END ==
LOC: M LAB REF 19:04
DX: D50.9 Iron deficiency anemia, unspecified (principal)

== ENCOUNTER → 2017-05-17 | Outpatient (CLI) | payer OTHER ==
[2017-05-17 19:40] LABS: BASO % 0.1 % (0.0-1.0); HEMATOCRIT 37.9 % (36.0-47.0); HEMOGLOBIN 12.2 g/dl (12.0-15.5); IMMATURE GRANULOCYTE % 0.3 % (0-3.0); LYMPH # 0.9 10^3/uL (1.5-6.5); LYMPH % 11.9 % (24.0-44.0); MEAN CORPUSCULAR HEMOGLOBIN 28.6 pg (27.0-33.0); MEAN CORPUSCULAR HGB CONC 32.2 g/dl (32.0-36.5); MONO # 0.3 10^3/uL (0.0-0.8); MONO % 4.3 % (0.0-5.0); NEUTROPHILS # 5.9 10^3/uL (1.8-7.7); NEUTROPHILS % 83.4 % (36.0-66.0); PLATELET COUNT, AUTOMATED 340 10^3/uL (150-450); RED BLOOD COUNT 4.26 10^6/uL (4.00-5.40); RED CELL DISTRIBUTION WIDTH 13.5 % (11.5-14.5); WHITE BLOOD COUNT 7.1 10^3/uL (4.0-10.0)
[2017-05-17 20:40] LABS: ALBUMIN 3.4 GM/DL (3.2-5.2); ALBUMIN/GLOBULIN RATIO 0.83 (1.00-1.93); ALKALINE PHOSPHATASE 62 U/L (45-117); ALT/SGPT 25 U/L (12-78); ANION GAP 9 MEQ/L (8-16); AST/SGOT 8 U/L (7-37); BILIRUBIN,TOTAL 0.2 MG/DL (0.2-1.0); BLOOD UREA NITROGEN 10 MG/DL (7-18); CALCIUM LEVEL 8.7 MG/DL (8.5-10.1); CARBON DIOXIDE LEVEL 22 MEQ/L (21-32); CHLORIDE LEVEL 107 MEQ/L (98-107); CREATININE FOR GFR 0.71 MG/DL (0.55-1.30); FERRITIN 79 NG/ML (8-252); GLOMERULAR FILTRATION RATE > 60.0 (>60); GLUCOSE, FASTING 134 MG/DL (70-100); IRON (FE) 37 UG/DL (50-170); PERCENT SATURATION 12.4 % (13.2-45.0); POTASSIUM SERUM 4.4 MEQ/L (3.5-5.1); SODIUM LEVEL 138 MEQ/L (136-145); TOTAL IRON BINDING CAPACITY 298 UG/DL (250-450); TOTAL PROTEIN 7.5 GM/DL (6.4-8.2)
== END ==
LOC: M LAB 17:28
DX: D50.9 Iron deficiency anemia, unspecified (principal)
CPT/HCPCS: 83550

== ENCOUNTER → 2017-06-15 | Outpatient (CLI) | payer OTHER ==
[2017-06-15 15:17] LABS: HEMOGLOBIN 12.1 g/dl (12.0-15.5); MEAN CORPUSCULAR HEMOGLOBIN 28.1 pg (27.0-33.0); MEAN CORPUSCULAR HGB CONC 31.8 g/dl (32.0-36.5); MEAN CORPUSCULAR VOLUME 88.4 fl (80.0-96.0); PLATELET COUNT, AUTOMATED 311 10^3/uL (150-450); RED CELL DISTRIBUTION WIDTH 13.5 % (11.5-14.5); WHITE BLOOD COUNT 10.8 10^3/uL (4.0-10.0)
[2017-06-15 15:22] LABS: ALBUMIN 3.2 GM/DL (3.2-5.2); ALBUMIN/GLOBULIN RATIO 0.76 (1.00-1.93); ALKALINE PHOSPHATASE 45 U/L (45-117); ALT/SGPT 20 U/L (12-78); ANION GAP 8 MEQ/L (8-16); AST/SGOT 6 U/L (7-37); BILIRUBIN,TOTAL 0.3 MG/DL (0.2-1.0); BLOOD UREA NITROGEN 10 MG/DL (7-18); C REACTIVE PROTEIN QUANTITATIV 2.62 MG/DL (0.00-0.30); CALCIUM LEVEL 8.5 MG/DL (8.5-10.1); CARBON DIOXIDE LEVEL 22 MEQ/L (21-32); CHLORIDE LEVEL 107 MEQ/L (98-107); CREATININE FOR GFR 0.61 MG/DL (0.55-1.30); GLOMERULAR FILTRATION RATE > 60.0 (>60); GLUCOSE, FASTING 111 MG/DL (70-100); POTASSIUM SERUM 4.1 MEQ/L (3.5-5.1); SODIUM LEVEL 137 MEQ/L (136-145); TOTAL PROTEIN 7.4 GM/DL (6.4-8.2)
[2017-06-15 15:54] LABS: TOTAL 25(OH) VITAMIN D 12.2 NG/ML (30.0-100.0)
== END ==
LOC: M LAB 13:21
DX: R19.7 Diarrhea, unspecified (principal)
CPT/HCPCS: 80053

== ENCOUNTER → 2017-06-15 | Outpatient (CLI) | payer OTHER ==
[2017-06-15 15:16] LABS: BASO % 0.1 % (0.0-1.0); EOS % 0.1 % (0.0-3.0); HEMATOCRIT 37.4 % (36.0-47.0); HEMOGLOBIN 12.2 g/dl (12.0-15.5); IMMATURE GRANULOCYTE % 0.4 % (0-3.0); LYMPH # 0.8 10^3/uL (1.5-6.5); LYMPH % 6.7 % (24.0-44.0); MEAN CORPUSCULAR HEMOGLOBIN 28.9 pg (27.0-33.0); MEAN CORPUSCULAR HGB CONC 32.6 g/dl (32.0-36.5); MEAN CORPUSCULAR VOLUME 88.6 fl (80.0-96.0); MONO # 0.3 10^3/uL (0.0-0.8); MONO % 2.8 % (0.0-5.0); NEUTROPHILS # 10.1 10^3/uL (1.8-7.7); NEUTROPHILS % 89.9 % (36.0-66.0); PLATELET COUNT, AUTOMATED 304 10^3/uL (150-450); RED BLOOD COUNT 4.22 10^6/uL (4.00-5.40); RED CELL DISTRIBUTION WIDTH 13.5 % (11.5-14.5); WHITE BLOOD COUNT 11.3 10^3/uL (4.0-10.0)
[2017-06-15 15:40] LABS: ALBUMIN 3.3 GM/DL (3.2-5.2); ALBUMIN/GLOBULIN RATIO 0.79 (1.00-1.93); ALKALINE PHOSPHATASE 43 U/L (45-117); ALT/SGPT 21 U/L (12-78); ANION GAP 10 MEQ/L (8-16); AST/SGOT 5 U/L (7-37); BILIRUBIN,TOTAL 0.3 MG/DL (0.2-1.0); BLOOD UREA NITROGEN 10 MG/DL (7-18); CALCIUM LEVEL 8.5 MG/DL (8.5-10.1); CARBON DIOXIDE LEVEL 22 MEQ/L (21-32); CHLORIDE LEVEL 107 MEQ/L (98-107); CREATININE FOR GFR 0.61 MG/DL (0.55-1.30); GLOMERULAR FILTRATION RATE > 60.0 (>60); GLUCOSE, FASTING 108 MG/DL (70-100); POTASSIUM SERUM 4.1 MEQ/L (3.5-5.1); SODIUM LEVEL 139 MEQ/L (136-145); TOTAL PROTEIN 7.5 GM/DL (6.4-8.2)
[2017-06-15 15:43] LABS: GLUCOSE CHALLENGE TEST 1 HOUR 105 MG/DL (LESS THAN 140)
[2017-06-15 16:01] LABS: ESTIMATED AVERAGE GLUCOSE 108 MG/DL (60-110); HEMOGLOBIN A1c 5.4 %
[2017-06-15 16:03] LABS: RUBELLA IgG QUALITATIVE IMMUNE (IMMUNE)
[2017-06-15 16:05] LABS: HBsAg Prenatal NEGATIVE (NEGATIVE)
[2017-06-15 16:33] LABS: HEPATITIS C VIRUS ABY INDEX < 0.0 INDEX (<0.8); HIV 1&2 SCREEN CENTAUR NEGATIVE (NEGATIVE)
[2017-06-15 16:38] LABS: CHLAMYDIA DNA AMPLIFICATION NEGATIVE (NEGATIVE); GC DNA AMPLIFICATION NEGATIVE (NEGATIVE)
[2017-06-18 08:30] LABS: BILE ACIDS FRACTIONATED 12.3 umol/L (4.7-24.5)
== END ==
LOC: M LAB 13:24
DX: Z3A.08 8 weeks gestation of pregnancy (principal)
CPT/HCPCS: 82950

== ENCOUNTER → 2017-08-16 | Outpatient (CLI) | payer OTHER | LOC: M RAD 11:16 | DX: Z34.82 Encounter for supervision of other normal pregnancy, second trimester (principal) | CPT/HCPCS: 76811 ==

== ENCOUNTER → 2017-08-30 | Outpatient (CLI) | payer OTHER | LOC: M RAD 07:36 | DX: Z34.82 Encounter for supervision of other normal pregnancy, second trimester (principal); Z36.89 Encounter for other specified antenatal screening; Z3A.21 21 weeks gestation of pregnancy | CPT/HCPCS: 76816 ==

== ENCOUNTER → 2017-09-19 | Outpatient (CLI) | payer OTHER | LOC: M LAB 14:38 | DX: E55.9 Vitamin D deficiency, unspecified (principal) | CPT/HCPCS: 82306 ==

== ENCOUNTER → 2017-12-08 | Outpatient (REF) | payer OTHER | LOC: M LAB REF 17:02 | DX: Z34.83 Encounter for supervision of other normal pregnancy, third trimester (principal) ==

== ENCOUNTER → 2017-12-09 | Outpatient (CLI) | payer OTHER | LOC: M RAD 16:56 | DX: Z34.83 Encounter for supervision of other normal pregnancy, third trimester (principal); Z3A.36 36 weeks gestation of pregnancy | CPT/HCPCS: 76816 ==

== ENCOUNTER 2017-12-30 15:15 | Inpatient (IN) | payer OTHER ==
[2017-12-30] MEDS: LACTATED RINGER'S 1000 ML IV (16:08)
[2017-12-30 16:31] LABS: HEMATOCRIT 34.6 % (36.0-47.0); HEMOGLOBIN 11.3 g/dl (12.0-15.5); MEAN CORPUSCULAR HEMOGLOBIN 28.3 pg (27.0-33.0); MEAN CORPUSCULAR HGB CONC 32.7 g/dl (32.0-36.5); MEAN CORPUSCULAR VOLUME 86.5 fl (80.0-96.0); PLATELET COUNT, AUTOMATED 329 10^3/uL (150-450); RED CELL DISTRIBUTION WIDTH 14.1 % (11.5-14.5); WHITE BLOOD COUNT 14.8 10^3/uL (4.0-10.0)
[2017-12-30 16:39] LABS: AMPHETAMINES URINE REFLEX NEGATIVE (NEGATIVE); BARBITURATES URINE REFLEX NEGATIVE (NEGATIVE); BENZODIAZEPINES URINE REFLEX NEGATIVE (NEGATIVE); CANNABINOIDS URINE REFLEX NEGATIVE (NEGATIVE); COCAINE METABOLITE URINE REFLE NEGATIVE (NEGATIVE); METHADONE URINE REFLEX NEGATIVE (NEGATIVE); OPIATES URINE REFLEX NEGATIVE (NEGATIVE); PHENCYCLIDINE URINE REFLEX NEGATIVE (NEGATIVE)
[2017-12-30] MEDS ORDERED: FENTANYL 2MCG/ML ROPIVACAINE 0.2% IN 0.9% NACL 200ML IVBAG As Ordered (17:25)
[2017-12-30] MEDS: LR 1,000 ML IV (18:17)
[2017-12-30] MEDS ORDERED: EPIDURAL/PCA KEYS XX (19:00)
[2017-12-30] MEDS ORDERED: EPIDURAL COMMENT XX (19:00)
[2017-12-30] MEDS ORDERED: NALOXONE INJ 0.4 MG/1 ML VIAL (J2310) IV (19:00)
[2017-12-30] MEDS ORDERED: diphenhydrAMINE INJ 50MG/ML VIAL (J1200) IV (19:00)
[2017-12-30] MEDS ORDERED: REFRIGERATOR IV KEYS XX (19:00)
[2017-12-30] MEDS ORDERED: LACTATED RINGER'S 1000 ML IV (19:00)
[2017-12-30] MEDS ORDERED: ONDANSETRON 4MG/2ML VIAL (J2405) IV (19:00)
[2017-12-30] MEDS: FENTANYL/ROPIVACAINE/NACL BAG 200 ML EPIDURAL (19:00)
[2017-12-30] MEDS ORDERED: LOPERAMIDE 2 MG CAP PO (19:15)
[2017-12-30] MEDS: ePHEDrine SULFATE 25 MG/5 ML(5MG/ML) SYRINGE IV (19:32)
[2017-12-30] MEDS: CALCIUM CARBONATE 500 MG CHEW U/D PO (20:54)
[2017-12-30] MEDS ORDERED: OXYTOCIN 30 UNITS IN 0.9% NaCl 500ML IV BAG (J2590) As Ordered (21:20)
[2017-12-30] MEDS: OXYTOCIN DRIP 30 UNITS in APPROPRIATE DILUENT 1 EA IV (21:57)
[2017-12-30] MEDS ORDERED: DIBUCAINE 1% OINTMENT 30GM TOP (22:00)
[2017-12-30] MEDS ORDERED: MOM 30ML SUSPENSION UDC PO (22:00)
[2017-12-30] MEDS ORDERED: DOCUSATE SODIUM 100 MG CAP PO (22:00)
[2017-12-30] MEDS ORDERED: ANUSOL HC CREAM 30GM TOP (22:00)
[2017-12-30] MEDS ORDERED: METHYLERGONOVINE MALEATE 0.2 MG TAB PO (22:00)
[2017-12-30] MEDS: ACETAMINOPHEN 500 MG TAB PO (22:48)
[2017-12-31] MEDS ORDERED: ceFAZolin SOD 1 GM in D5W MINI-BAG PLUS 50 ML IV
[2017-12-31] MEDS: COLESEVELAM 625 MG TAB (WELCHOL) PO ×3 (00:50→21:34)
[2017-12-31] MEDS: ACETAMINOPHEN 500 MG TAB PO (08:42)
[2017-12-31] MEDS: CALCIUM CARBONATE 500 MG CHEW U/D PO ×3 (09:58→21:00)
[2017-12-31] MEDS: PRENATAL VITAMINS CHEWABLE TABLET PO (09:58)
[2017-12-31] MEDS: OMEPRAZOLE 20 MG CAP PO ×2 (10:15→21:34)
[2017-12-31] MEDS: predniSONE 20 MG TAB PO (11:36)
[2018-01-01] MEDS: ACETAMINOPHEN 500 MG TAB PO (00:06)
[2018-01-01] MEDS: RHOGAM 300 MCG (1500 IU) INJ (J2790) IM (08:09)
[2018-01-01] MEDS: MEASLES,MUMPS,RUBELLA VACCINE INJ (MMR-II) (90707) SC (08:09)
[2018-01-01] MEDS: predniSONE 20 MG TAB PO (09:00)
[2018-01-01] MEDS: PRENATAL VITAMINS CHEWABLE TABLET PO (09:00)
[2018-01-01] MEDS: COLESEVELAM 625 MG TAB (WELCHOL) PO (09:00)
[2018-01-01] MEDS: CALCIUM CARBONATE 500 MG CHEW U/D PO (09:00)
== END 2018-01-01 12:15 | disposition home or self-care (01) | DRG 560 ==
LOC: M LDO 15:15 → M LDI 15:37 → M OBS 23:31
PROC: 10E0XZZ Delivery of Products of Conception, External Approach (ICD-10-PCS; principal; 2017-12-30)
PROC: 0HQ9XZZ Repair Perineum Skin, External Approach (ICD-10-PCS; 2017-12-30)
PROC: 10907ZC Drainage of Amniotic Fluid, Therapeutic from Products of Conception, Via Natural or Artificial Opening (ICD-10-PCS; 2017-12-30)
DX: O34.211 Maternal care for low transverse scar from previous cesarean delivery (principal); O32.6XX0 Maternal care for compound presentation, not applicable or unspecified; Z37.0 Single live birth; Z3A.39 39 weeks gestation of pregnancy; Z88.0 Allergy status to penicillin; Z88.2 Allergy status to sulfonamides; Z91.040 Latex allergy status; Z88.8 Allergy status to other drugs, medicaments and biological substances; O70.0 First degree perineal laceration during delivery

== ENCOUNTER → 2018-01-11 | Outpatient (CLI) | payer OTHER ==
[2018-01-11 15:48] LABS: HEMOGLOBIN 12.4 g/dl (12.0-15.5); MEAN CORPUSCULAR HEMOGLOBIN 27.3 pg (27.0-33.0); MEAN CORPUSCULAR VOLUME 87.9 fl (80.0-96.0); PLATELET COUNT, AUTOMATED 421 10^3/uL (150-450); RED BLOOD COUNT 4.55 10^6/uL (4.00-5.40); RED CELL DISTRIBUTION WIDTH 13.7 % (11.5-14.5); WHITE BLOOD COUNT 10.9 10^3/uL (4.0-10.0)
[2018-01-11 16:17] LABS: ALBUMIN 3.2 GM/DL (3.2-5.2); ALBUMIN/GLOBULIN RATIO 0.78 (1.00-1.93); ALKALINE PHOSPHATASE 86 U/L (45-117); ALT/SGPT 38 U/L (12-78); ANION GAP 10 MEQ/L (8-16); AST/SGOT 13 U/L (7-37); BILIRUBIN,TOTAL 0.2 MG/DL (0.2-1.0); BLOOD UREA NITROGEN 15 MG/DL (7-18); C REACTIVE PROTEIN QUANTITATIV 1.67 MG/DL (0.00-0.30); CALCIUM LEVEL 8.6 MG/DL (8.5-10.1); CARBON DIOXIDE LEVEL 26 MEQ/L (21-32); CHLORIDE LEVEL 106 MEQ/L (98-107); CREATININE FOR GFR 0.74 MG/DL (0.55-1.30); ERYTHROCYTE SEDIMENTATION RATE 24 mm/hr (0-20); GLOMERULAR FILTRATION RATE > 60.0 (>60); GLUCOSE, FASTING 76 MG/DL (70-100); POTASSIUM SERUM 4.3 MEQ/L (3.5-5.1); SODIUM LEVEL 142 MEQ/L (136-145); TOTAL PROTEIN 7.3 GM/DL (6.4-8.2)
== END ==
LOC: M LAB 14:57
DX: K51.90 Ulcerative colitis, unspecified, without complications (principal)
CPT/HCPCS: 80053

== ENCOUNTER → 2018-03-28 | Outpatient (REF) | payer OTHER ==
[~2018-03-28] MED LIST changes: +COLE625TAB PO; -DRIS50002 PO; +DRIS50003 PO; -GABA-282 PO; +GABA-843 PO; +MAPA500T2 PO; +ORTH1TAB16 PO; -ORTHTAB14 PO; +PRED20TA PO; +PRENTAB9 PO
== END ==
LOC: M LAB REF 17:06
PROVIDERS: ATTEND Advanced Practice Midwife
DX: Z12.4 Encounter for screening for malignant neoplasm of cervix (principal)

== ENCOUNTER → 2018-05-01 | Outpatient (CLI) | payer OTHER ==
[2018-05-01 13:02] LABS: HEMATOCRIT 37.3 % (36.0-47.0); HEMOGLOBIN 11.7 g/dl (12.0-15.5); MEAN CORPUSCULAR HEMOGLOBIN 26.7 pg (27.0-33.0); MEAN CORPUSCULAR HGB CONC 31.4 g/dl (32.0-36.5); MEAN CORPUSCULAR VOLUME 85.2 fl (80.0-96.0); PLATELET COUNT, AUTOMATED 318 10^3/uL (150-450); RED BLOOD COUNT 4.38 10^6/uL (4.00-5.40); WHITE BLOOD COUNT 4.8 10^3/uL (4.0-10.0)
[2018-05-01 13:34] LABS: ALBUMIN 3.3 GM/DL (3.2-5.2); ALT/SGPT 39 U/L (12-78); BILIRUBIN,TOTAL 0.2 MG/DL (0.2-1.0); BLOOD UREA NITROGEN 6 MG/DL (7-18); C REACTIVE PROTEIN QUANTITATIV 2.47 MG/DL (0.00-0.30); CALCIUM LEVEL 8.8 MG/DL (8.5-10.1); CARBON DIOXIDE LEVEL 27 MEQ/L (21-32); CHLORIDE LEVEL 107 MEQ/L (98-107); GLOMERULAR FILTRATION RATE > 60.0 (>60); GLUCOSE, FASTING 77 MG/DL (70-100); MAGNESIUM LEVEL 1.7 MG/DL (1.8-2.4); POTASSIUM SERUM 4.1 MEQ/L (3.5-5.1); SODIUM LEVEL 140 MEQ/L (136-145)
[2018-05-01 13:37] LABS: TOTAL 25(OH) VITAMIN D 39.1 NG/ML (30.0-100.0)
== END ==
LOC: M LAB 11:54
PROVIDERS: ATTEND Internal Medicine Gastroenterology
DX: R19.7 Diarrhea, unspecified (principal); K91.5 Postcholecystectomy syndrome; K51.90 Ulcerative colitis, unspecified, without complications; K21.9 Gastro-esophageal reflux disease without esophagitis

== ENCOUNTER → 2018-06-29 | Outpatient (REF) | payer OTHER ==
[~2018-06-29] MED LIST changes: -ACET50TA PO; -DOCU10ELUD PO; +DOCU5LIQ PO; +MAPA500T17 PO; +ORTH1TAB15 PO; -ORTH1TAB16 PO
== END ==
LOC: M SFHCPLAZ 15:14
DX: Z53.9 Procedure and treatment not carried out, unspecified reason (principal); Z00.00 Encounter for general adult medical examination without abnormal findings

== ENCOUNTER → 2018-08-26 | Outpatient (CLI) | payer OTHER ==
[~2018-08-26] MED LIST changes: -ORTH1TAB15 PO; +ORTH1TAB8 PO
[2018-08-26 12:18] LABS: HEMATOCRIT 37.7 % (36.0-47.0); HEMOGLOBIN 11.9 g/dl (12.0-15.5); MEAN CORPUSCULAR HEMOGLOBIN 26.3 pg (27.0-33.0); MEAN CORPUSCULAR HGB CONC 31.6 g/dl (32.0-36.5); MEAN CORPUSCULAR VOLUME 83.4 fl (80.0-96.0); PLATELET COUNT, AUTOMATED 328 10^3/uL (150-450); RED BLOOD COUNT 4.52 10^6/uL (4.00-5.40); WHITE BLOOD COUNT 5.2 10^3/uL (4.0-10.0)
[2018-08-26 12:35] LABS: ALBUMIN 3.2 GM/DL (3.2-5.2); ALT/SGPT 19 U/L (12-78); BILIRUBIN,TOTAL 0.1 MG/DL (0.2-1.0); BLOOD UREA NITROGEN 7 MG/DL (7-18); CARBON DIOXIDE LEVEL 23 MEQ/L (21-32); CHLORIDE LEVEL 111 MEQ/L (98-107); CREATININE FOR GFR 0.77 MG/DL (0.55-1.30); GLOMERULAR FILTRATION RATE > 60.0 (>60); GLUCOSE, FASTING 81 MG/DL (70-100); POTASSIUM SERUM 3.7 MEQ/L (3.5-5.1); SODIUM LEVEL 142 MEQ/L (136-145); TOTAL PROTEIN 7.2 GM/DL (6.4-8.2)
== END ==
LOC: M LAB 11:43
PROVIDERS: ATTEND Internal Medicine Gastroenterology
DX: R19.7 Diarrhea, unspecified (principal); K51.90 Ulcerative colitis, unspecified, without complications

== ENCOUNTER → 2018-09-23 | Outpatient (REF) | payer OTHER | LOC: M LAB REF 15:43 | PROVIDERS: ATTEND Internal Medicine Gastroenterology | DX: R19.7 Diarrhea, unspecified (principal) ==

== ENCOUNTER → 2018-09-25 | Outpatient (CLI) | payer OTHER ==
[2018-09-25 13:35] LABS: HEMOGLOBIN A1c 6.1 %
[2018-09-25 13:48] LABS: CHOLESTEROL LEVEL 147 MG/DL (< 200); CHOLESTEROL LEVEL 147 MG/DL (<200); HDL CHOLESTEROL 57 MG/DL (> 40); HDL CHOLESTEROL 57 MG/DL (>40); LDL CHOLESTEROL 69 MG/DL (<100); TRIGLYCERIDES LEVEL 103 MG/DL (<150)
== END ==
LOC: M LAB 12:21
PROVIDERS: ATTEND Internal Medicine
DX: Z00.00 Encounter for general adult medical examination without abnormal findings (principal)

== ENCOUNTER → 2018-10-28 | Outpatient (CLI) | payer OTHER ==
--- NOTE | 2018-10-28 11:15 | REPVR ---
EXAM: MR Head Without Contrast EXAM DATE/TIME: 10/28/2018 10:17 AM CLINICAL HISTORY: 28 years old, female; Pain; Headache; Migraine; Aura effect not specified; Does not respond to medication; Severity not specified; Additional info: G43.109 ocular migraine TECHNIQUE: Imaging protocol: MR of the head without contrast. COMPARISON: No relevant prior studies available. FINDINGS: Brain: Normal. No acute infarct. No hemorrhage. No significant white matter disease. No edema. Ventricles: Normal. No ventriculomegaly. Bones/joints: Unremarkable. Soft tissues: Unremarkable. Sinuses: Normal as visualized. No acute sinusitis. Mastoid air cells: Normal as visualized. No mastoid effusion. Orbits: Unremarkable. IMPRESSION: No acute findings. Electronically signed by: Jose Ruvalcaba On 10/28/2018 11:14:50 AM
--- NOTE | 2018-10-28 11:17 | REPVR ---
EXAM: MR Angiogram Head Without Contrast, Arteries EXAM DATE/TIME: 10/28/2018 10:18 AM CLINICAL HISTORY: 28 years old, female; Pain; Headache; Additional info: G43.109 ocular migraine TECHNIQUE: Imaging protocol: MR angiogram head without contrast. Exam focused on the arteries. COMPARISON: No relevant prior studies available. FINDINGS: Right internal carotid artery: Unremarkable. Intracranial segment is patent with no significant stenosis. No aneurysm. Right anterior cerebral artery: Unremarkable. No occlusion or significant stenosis. No aneurysm. Right middle cerebral artery: Unremarkable. No occlusion or significant stenosis. No aneurysm. Right posterior cerebral artery: Unremarkable. No occlusion or significant stenosis. No aneurysm. Right vertebral artery: Unremarkable. No occlusion or significant stenosis. No aneurysm. Left internal carotid artery: Unremarkable. Intracranial segment is patent with no significant stenosis. No aneurysm. Left anterior cerebral artery: Unremarkable. No occlusion or significant stenosis. No aneurysm. Left middle cerebral artery: Unremarkable. No occlusion or significant stenosis. No aneurysm. Left posterior cerebral artery: Unremarkable. No occlusion or significant stenosis. No aneurysm. Left vertebral artery: Unremarkable. No occlusion or significant stenosis. No aneurysm. Basilar artery: Unremarkable. No occlusion or significant stenosis. No aneurysm. IMPRESSION: No acute findings. Electronically signed by: Jose Ruvalcaba On 10/28/2018 11:16:52 AM
== END ==
LOC: M RAD 10:13
PROVIDERS: ATTEND Internal Medicine
DX: G43.109 Migraine with aura, not intractable, without status migrainosus (principal)

== ENCOUNTER → 2018-11-06 | Outpatient (CLI) | payer OTHER | LOC: M LAB 17:30 | PROVIDERS: ATTEND Internal Medicine Gastroenterology | DX: K51.90 Ulcerative colitis, unspecified, without complications (principal) ==